=== PATIENT | male | born 1960 | race Caucasian/White ===

== ENCOUNTER 2024-12-19 07:40 | Day surgery (SDC) | payer MEDICAID, SELFPAY ==
[2024-12-19] VITALS (8 sets, daily range): BP systolic 120–167; BP diastolic 83–117; PULSE 47–71; RESP 13–22; TEMP 36.1–36.9; O2SAT 94–98; BMI 29.5
[2024-12-19] MEDS: RINGERS LACTATED 1000 ML 1,000 ML 125 ML IV (09:31)
[2024-12-19] MEDS: MIDAZOLAM INJ 1 MG/ML VIAL 2 ML (ASD USE ONLY) 2 MG IVP (09:32)
[2024-12-19] MEDS: fentaNYL CIT INJ 50 mCg/ML AMP 2ML (ASD USE ONLY) IVP (09:35)
== END 2024-12-19 10:30 | disposition home or self-care (01) ==
PROVIDERS: PCP Nurse Practitioner Family; Referring Provider Internal Medicine Gastroenterology; Visit Provider Internal Medicine Gastroenterology
PROC: (CPT 43239; principal; 2024-12-19 11:15)
DX: K21.00 Gastro-esophageal reflux disease with esophagitis, without bleeding (principal); K44.9 Diaphragmatic hernia without obstruction or gangrene; K29.70 Gastritis, unspecified, without bleeding; K31.89 Other diseases of stomach and duodenum; I10 Essential (primary) hypertension; K29.80 Duodenitis without bleeding; K20.90 Esophagitis, unspecified without bleeding
CPT/HCPCS: 43239; J2250; J3010; J7120

== ENCOUNTER 2025-02-03 09:23 | Emergency (ER) | payer MEDICAID, SELFPAY ==
[2025-02-03 09:24] VITALS: BMI 28.8
[2025-02-03 10:00] VITALS: BP 138/90; PULSE 76; RESP 19; TEMP 36.7; O2SAT 99
--- NOTE | 2025-02-03 10:36 | PD.EDRME ---
Rapid Medical Screening Exam RME Arrival date/time: 02/03/25 09:23 This is a 64-year-old male that comes in with complaints of urinary issues. Patient also complains of some back pain. Patient was recently treated for UTI with Macrobid approximately 2 weeks ago. Patient states his symptoms still are bothering him. Patient states that he does have an enlarged prostate. He has a hard time urinating and can only urinate when he is taking a shower. Patient has some outpatient orders of health this and kidney ultrasound. I told patient that we do not do these orders in the emergency room and he will need to make an appointment to get these done I have greeted and performed a focused initial assessment of this patient. Initial appropriate labs ordered at this time. A comprehensive ED assessment and evaluation of the patient and analysis of all test and completion of medical decision making process will be conducted by additional ED provider. Chief Complaint: Urogenital-Male Time Seen by Provider: 02/03/25 10:19 Vital signs: Vital Signs Temperature 98.1 F 02/03/25 10:00 Pulse Rate 76 02/03/25 10:00 Respiratory Rate 19 02/03/25 10:00 Blood Pressure 138/90 H 02/03/25 10:00 Pulse Oximetry (%) 99 02/03/25 10:00 Oxygen Delivery Method Room Air 02/03/25 10:00
[2025-02-03 10:48] LABS: Collection Type, Urine Voided; Squamous Epithelial Cell,Urine 0 /hpf (0-5)
[2025-02-03 10:57] LABS: Bilirubin,Urine Negative (Negative); Blood,Urine Negative (Negative); Clarity,Urine Clear (Clear/Hazy); Color,Urine Lt-Yellow (Lt Yel-Yel); Culture Indicated,Urine Not Indicated; Glucose, Urine Negative (Negative); Ketones,Urine Negative (Negative); Leukocyte Esterase,Urine Negative (Negative); Nitrite,Urine Negative (Negative); PH,Urine 6.5 (5.0-7.0); Protein,Urine Negative (Neg - Trace); RBC,Urine < 1 /hpf (0-3); Specific Gravity,Urine 1.011 (1.001-1.035); Urobilinogen,Urine Negative mg/dL (0.0-1.0); WBC,Urine 1 /hpf (0-5)
[2025-02-03 11:45] LABS: Basophils # (Auto) 0.1 Thou/mm3 (0.0-0.2); Basophils % (Auto) 1 % (0-2.5); Eosinophils # (Auto) 0.0 Thou/mm3 (0.0-0.5); Eosinophils % (Auto) 0 % (0-10); Hematocrit 42.9 % (41.0-53.0); Hemoglobin 15.2 g/dL (13.5-16.0); Immature Granulocytes Auto 0.06 Thou/mm3 (0.00-0.00); Lymphocytes # (Auto) 1.5 Thou/mm3 (1.0-4.8); Lymphocytes % (Auto) 21 % (10-50); Mean Corpuscular HGB Conc 35.4 g/dl (31.0-37.0); Mean Corpuscular Hemoglobin 32.0 pg (25.0-35.0); Mean Corpuscular Volume 90 fL (80-100); Monocytes # (Auto) 0.8 Thou/mm3 (0.0-0.8); Monocytes % (Auto) 11 % (0-12); Neutrophils # (Auto) 4.7 Thou/mm3 (1.8-7.7); Neutrophils % (Auto) 66 % (37-80); Nucleated Red Blood Cell # 0.00 Thou/mm3 (0.00-0.00); Nucleated Red Blood Cell % 0 /100 WBC (0); Platelet Count 262 Thou/mm3 (140-440); RDW Standard Deviation 45.8 fL (35.1-43.9); Red Blood Count 4.75 Miln/mm3 (4.50-5.90); White Blood Count 7.1 Thou/mm3 (3.8-10.6)
[2025-02-03 13:18] LABS: Alanine Aminotransferase 31 U/L (10-49); Albumin, Serum 4.7 gm/dL (3.4-4.8); Albumin/Globulin Ratio 1.8 (1.2-2.2); Alkaline Phosphatase 77 U/L (46-116); Anion Gap 9 (7-16); Aspartate Amino Transferase 37 U/L (0-34); BUN/Creatinine Ratio 8 Ratio (12-20); Bilirubin,Total 0.8 mg/dL (0.3-1.2); Blood Urea Nitrogen 7 mg/dL (9-23); Calcium 9.7 mg/dL (8.3-10.6); Calcium (Corrected) 9.7 mg/dL (8.5-10.1); Carbon Dioxide 24.5 mMol/L (20.0-31.0); Chloride 97 mMol/L (98-107); Creatinine (Component) 0.9 mg/dL (0.6-1.3); Estimated Creatinine Clearance 88.6 mL/min (>60); Globulin 2.6 gm/dL (2.3-3.5); Glucose 104 mg/dL (74-106); Osmolality,Calculated 258 (275-295); Potassium 4.3 mMol/L (3.4-5.1); Sodium 130 mMol/L (136-145); Total Protein 7.3 gm/dL (5.7-8.2); eGFR > 60 See Note
--- NOTE | 2025-02-03 14:31 | XR_ITS ---
Examination: CT abdomen with intravenous contrast CT pelvis with intravenous contrast 2-D coronal reconstructions 2-D sagittal reconstructions Date and time of exam:February 03, 2025, 1730 hrs. Indications: Painful urination beginning 2 weeks ago. CTDI: vol (mGy) 7.7, 9.79 DLP: (mGycm) 534 Technique: Multiple axial sections of the abdomen and pelvis have been obtained. 64 slice high-resolution scanner used. 3 mm axial sections have been obtained, post intravenous 60 cc [id number] 2-D sagittal, coronal reconstructions obtained. Low dose protocols were performed. One or more of the following dose reduction techniques were used; automated exposure control, adjustment of the mA and/or KV according to patient size, use of iterative reconstruction technique. Findings: No focal liver or splenic lesion. Absent gallbladder. Common bile duct 7 mm no stones. No pancreatic mass. Moderate renal parenchymal scar formation, no renal or ureteral calculi, no hydronephrosis. Aortic calcification no aneurysmal dilatation. No pericecal inflammatory change No bowel obstruction Colonic diverticulosis, no diverticulitis Urinary bladder wall thickening up to 4 mm. Transverse prostate dimension 3.7 cm. Diffuse moderate to advanced lumbar degenerative disc disease. Impression: Moderate renal parenchymal scar formation. No hydronephrosis renal or ureteral calculi. Cystitis pattern.
--- NOTE | 2025-02-03 14:32 | PD.EDMALE ---
ED Male Genitalurinary RME/HPI General Chief complaint: Urogenital-Male Stated complaint: PAIN WITH URINATION x 2 WEEKS Time Seen by Provider: 02/03/25 10:19 Arrival date/time: 02/03/25 09:23 RME / HPI RME / HPI Narrative: 64-year-old male that comes in with complaints of urinary issues. Patient also complains of some back pain. Patient was recently treated for UTI with Macrobid approximately 2 weeks ago. Patient states his symptoms still are bothering him. Patient states that he does have an enlarged prostate. He has a hard time urinating and can only urinate when he is taking a shower. Patient has some outpatient orders of prostate and kidney ultrasound. Denies any fever denies any other complaints no medication was taken prior to arrival. Related Data Home Medications ?Medication ?Instructions ?Recorded ?Confirmed carvedilol 3.125 mg tablet 3.125 mg PO BID 12/03/18 12/19/24 folic acid 1 mg tablet 1 mg PO QDAY 12/03/18 12/19/24 losartan 50 mg tablet 50 mg PO QDAY 12/03/18 12/19/24 adalimumab 40 mg/0.4 mL 40 mg subcut QOWEEK 11/29/23 12/19/24 subcutaneous pen kit (Humira(CF) Pen) methotrexate sodium 2.5 mg tablet 10 mg PO QWEEK 11/29/23 12/19/24 quetiapine 100 mg tablet (Seroquel) 100 mg PO HS 11/29/23 12/19/24 ergocalciferol (vitamin D2) 1,250 1,250 mcg PO QWEEK 12/19/24 12/19/24 mcg (50,000 unit) capsule multivitamin 1 tab PO QDAY 12/19/24 12/19/24 simvastatin 20 mg tablet 20 mg PO HS 12/19/24 12/19/24 Previous Rx's ?Medication ?Instructions ?Recorded tamsulosin 0.4 mg capsule 0.4 mg PO QDAY #30 caps 08/05/17 docusate sodium 100 mg capsule 100 mg PO BID #40 caps 11/30/23 (Colace) hydrocodone 5 mg-acetaminophen 325 1 tab PO Q6H PRN pain (scale score 11/30/23 mg tablet 7-10) #30 tabs Held on 12/19/24. Instructions: Resume on 12/20/24. Allergies Allergy/AdvReac Type Severity Reaction Status Date / Time No Known Allergies Allergy Verified 02/03/25 09:26 Review of Systems Review of Systems Narrative Review of Systems: Review of system reviewed and within normal limits except mentioned in HPI ED Exam Narrative Physical exam: VITAL SIGNS: Reviewed. GENERAL APPEARANCE: Alert and interactive, follows commands, no acute distress, HEAD AND FACE: Non-traumatic. ENT: PERRL, pink conjunctivitis, eyelid no trauma, Mucous membrane moist. NECK: Supple, nontender, no nuchal rigidity. CHEST: No tenderness, no crepitus, no paradoxical movement, no retractions. LUNGS: Clear, well ventilated, symmetric, no rales, no wheezing, no ronchi, no stridor, good breath sounds bilaterally. HEART: Regular rate, regular rhythm, no murmur, no gallops. ABDOMEN: Soft, positive bowel sounds, nondistended, no guarding, nontender, no rebound, no masses, RECTAL: Deferred. GENITAL: Deferred. NEUROLOGICAL: Gross motor function intact sensory function intact, Appropriate for age. MUSCULOSKELETAL: low back nontender, full range of motion. EXTREMITIES: Nontender, full range of motion. SKIN: Color pink, dry, no rash, no lacerations, no abrasions, no contusions. LYMPHATICS: Deferred. Course Quality Measures none Orders Category Date Time Status CT Screening NOW Care 02/03/25 14:[address] abdomen pelvis w con Stat Exams 02/03/25 14:31 Completed CBC Stat Lab 02/03/25 11:02 Completed Comprehensive Metabolic Panel Stat Lab 02/03/25 11:02 Completed Urinalysis, C/S if Indicated Stat Lab 02/03/25 10:40 Completed Vital Signs Vital signs: Vital Signs Temperature 98.1 F 02/03/25 10:00 Pulse Rate 76 02/03/25 10:00 Respiratory Rate 19 02/03/25 10:00 Blood Pressure 138/90 H 02/03/25 10:00 Pulse Oximetry (%) 99 02/03/25 10:00 Oxygen Delivery Method Room Air 02/03/25 10:00 Urogenital - Male MDM Narrative MDM Narrative:: 64-year-old male that comes in with complaints of urinary issues. Patient also complains of some back pain. Patient was recently treated for UTI with Macrobid approximately 2 weeks ago. Patient states his symptoms still are bothering him. Patient states that he does have an enlarged prostate. He has a hard time urinating and can only urinate when he is taking a shower. Patient has some outpatient orders of prostate and kidney ultrasound. Denies any fever denies any other complaints no medication was taken prior to arrival. Patient's urinalysis is negative for UTI. The rest of the labs unremarkable. CT scan of the abdomen and pelvis came back with no acute pathology. CT scan results was given to the patient. Stable for discharge home Patient data External records reviewed:: None Clinical information provided by:: patient Social determinants that could affect healthcare access:: none Patient has the following chronic illnesses:: BPH, hypertension rheumatoid arthritis How is presenting disease/condition affected by chronic disease/condition?: exacerbated by Evaluation data The following diagnostics were reviewed and interpreted by me:: lab results and radiology exam(s) Lab and/or radiology exams considered but not ordered:: None Interpretation Summary: See results MDM Medications / Prescriptions Medications or Prescriptions considered but not ordered:: None Medication administrations:: None Consultations Consultation(s) initiated? (list below): No Diagnosis Urogenital Male Differential Diagnosis: urinary tract infection, urethritis and prostatitis Most likely diagnosis given after review of the tests above:: Dysuria Admission Indicated Admission indicated?: not indicated Admission Request Was there a request for admission?: No Disposition Plan Disposition Plan: Discharge Discharge Attestation Discharge Attestation: The patient was given an opportunity to ask questions and understood the discharge instructions. Discharge instructions specifically effects, indications for sooner follow up or return to the emergency department, and the expected course of current diagnosis. Patient condition: Stable Discharge Plan Plan Patient Disposition: HOME (Self Care) Discharge Disposition comment: None Prescriptions/Referrals Prescriptions/Med Rec: No Action tamsulosin 0.4 mg Capsule,Extended Release 24hr 0.4 mg PO QDAY Qty: 30 0RF losartan 50 mg Tablet 50 mg PO QDAY carvedilol 3.125 mg Tablet 3.125 mg PO BID folic acid 1 mg Tablet 1 mg PO QDAY quetiapine [Seroquel] 100 mg Tablet 100 mg PO HS methotrexate sodium 2.5 mg Tablet 10 mg PO QWEEK Humira(CF) Pen 40 mg/0.4 mL pen injector kit 40 mg SUBCUT QOWEEK docusate sodium [Colace] 100 mg capsule 100 mg PO BID Qty: 40 0RF hydrocodone-acetaminophen 5-325 mg tablet 1 tab PO Q6H MDD 4 PRN (Reason: pain (scale score 7-10)) Qty: 30 0RF multivitamin Tablet 1 tab PO QDAY Patient Comments: TAKE ONE TABLET BY MOUTH EVERY DAY VITAMIN simvastatin 20 mg tablet 20 mg PO HS Patient Comments: TAKE ONE TABLET BY MOUTH AT BEDTIME FOR CHOLESTEROL ergocalciferol (vitamin D2) 1,250 mcg (50,000 unit) capsule 1,250 mcg PO QWEEK Patient Comments: TAKE ONE CAPSULE BY MOUTH EVERY WEEK VITAMIN Referrals: oTri Goldberg, [employer] OPERATOR [Primary Care Provider] - In 1 week Problem List Clinical Impression: Dysuria Patient/Caregiver Discharge Instructions Discharge Activity: activity as tolerated Education Materials: Dysuria Additional Instructions: Thank you for the opportunity for serving you today. You are stable for discharged . You are advised to: Follow-up with your PCP in 1 to 2 days Return to ED for worsening of symptoms Increase oral fluids Print Language: Maori Stand Alone Forms: Juliette Award Info., Patient Portal Info Letter PA/PACK TRAIN DRIVER Supervising Physician LORI/WALLACE Supervising Physician: MD Di
== END 2025-02-03 18:18 | disposition home or self-care (01) ==
PROVIDERS: Nurse Practitioner Family; Emergency Provider Emergency Medicine; PCP Nurse Practitioner Family
DX: R30.0 Dysuria (principal); M54.9 Dorsalgia, unspecified; Z87.440 Personal history of urinary (tract) infections
CPT/HCPCS: 36415; 74177; 80053; 81001; 85025; 99284; A4649; Q9967